=== PATIENT | female | born 1935 | race Caucasian/White ===

== ENCOUNTER 2016-10-30 13:13 | Emergency (ER) | payer MEDICARE ==
[~2016-10-30] VITALS: Ht 162.6 cm; Wt 60.0 kg
[2016-10-30 13:25] VITALS: BP 152/84
--- NOTE | 2016-10-30 14:41 | RAD ---
Right knee radiograph 10/30/2016 at 1331 hours Indication: Fall today Comparison: None available Technique: 3 views of the right knee are provided. Findings: There is a transversely oriented fracture involving the lower pole of the patella which is mildly distracted. There is a small knee joint effusion. Infrapatellar fat pad is clear. No acute fracture involving the femur, tibia or fibula. Impression: Transversely oriented fracture involving the patella with minimal distraction. Small knee joint effusion.
--- NOTE | 2016-10-30 14:51 | PHYS DOC ---
General Chief Complaint: KNEE INJURY Stated Complaint: [facility] F[facility]. RT KNEE PAIN Time Seen by MD: 13:18 Source: patient Exam Limitations: no limitations Problems: History of Present Illness Initial Comments Patient is an 80-year-old female brought to the ED for evaluation all. Patient states she was walking in the driveway and hit uneven pavement tripping she fell to her right knee and caught herself with her left upper extremity. She hit her left forehead on the ground but did not black out she's had no neck pain photophobia vomiting or focal neurologic deficit. She does complain of a headache as well as generalized left wrist pain but she moved the left wrist fully. She was unable to bear weight on her right leg complaining of severe knee pain across the knee. She denies numbness tingling weakness or radiating symptoms, she denies any other injuries from the fall. Her only medical problems are history of breast cancer for which she was treated with bilateral mastectomy and she takes tamoxifen. She denies anticoagulation. Onset: just prior to arrival Severity: severe Pain/Injury Location: right knee Method of Injury: fell Modifying Factors: worse with jarring, worse with movement, improves with pain medication, improves with rest Allergies: Coded Allergies: Penicillins (Verified Allergy, Unknown, 10/30/16) Past Medical History Medical History: cancer (rest) Surgical History: noncontributory (mastectomy) Social History Smoker: non-smoker Alcohol: occasionally Drugs: none Review of Systems Constitutional: denies chills, denies fever EENTM: denies eye pain, denies ear pain, denies ear discharge, denies nose congestion, denies throat pain Respiratory: denies cough, denies shortness of breath Cardiovascular: denies chest pain, denies palpitations, denies syncope Gastrointestinal: denies abdominal pain, denies nausea, denies vomiting Musculoskeletal: see HPI Psychiatric/Neurological: see HPI Physical Exam General Appearance: WD/WN, moderate distress HEENT: PERRL/EOMI, normal ENT inspection, TMs normal, pharynx normal, other ( there is a small abrasion of the left fourth and otherwise normocephalic atraumatic raccoon eyes no bony scalp deformity or areas of swelling or tenderness at the face or scalp.) Neck: non-tender, supple Cardiovascular/Respiratory: normal peripheral pulses, normal breath sounds Back: no CVA tenderness, no vertebral tenderness Knees: right knee other (exquisite tenderness and swelling of the right patella range of motion and ligamentous integrity not tested due to probable fracture) Neurologic/Tendon: normal sensation, normal motor functions, normal tendon functions, responds to pain, no evidence tendon injury, other (left wrist has generalized tenderness no bony tenderness for range of motion) Psychiatric: alert, oriented x 3 Skin: normal color, warm/dry Orders, Labs, Meds PATIENT: VICKI MONAHAN ACCOUNT: [id number] : 1935 LOCATION: ER AGE: 80 SEX: F EXAM STATUS: PRE ER ORD. PHYSICIAN: BRYCE PAYAN DO REASON: FALL PROCEDURE: KNEE RIGHT 3V Right knee radiograph 10/30/2016 at 1331 hours Indication: Fall today Comparison: None available Technique: 3 views of the right knee are provided. Findings: There is a transversely oriented fracture involving the lower pole of the patella which is mildly distracted. There is a small knee joint effusion. Infrapatellar fat pad is clear. No acute fracture involving the femur, tibia or fibula. Impression: Transversely oriented fracture involving the patella with minimal distraction. Small knee joint effusion. DICTATED AND SIGNED BY: FELIPE BARRIGA MD DATE: 10/30/161436 CC: BRYCE PAYAN DO ~ I discussed the patient with Dr. Taylor who reviewed the patient's knee and wrist films while we spoke. Interpreted wrist as negative, there is a patellar fracture of right knee. He recommends right knee immobilizer and crutches, patient can bear some weight. He gave his contact information for this patient to call Tuesday morning to schedule an appointment. I discussed this with the patient was relieved she was going to get to go home. Her questions were answered she expressed agreement and understanding with the treatment plan see departure instructions. technical services consultant is going to arrange home health. Departure Time of Disposition: 16:35 Disposition: 01 HOME, SELF-CARE Diagnosis: Fall, Right patella fracture, concussion, left wri Condition: STABLE Patient Instructions: Concussion and Brain Injury, [id number], Patellar Fracture, Adult, RICE - Routine Care for Injuries, [id number] Additional Instructions: Wear right knee immobilizer except when bathing. Use crutches for ambulation, do not bear weight fully on her right leg. RICE, see handout. Avoid aspirin and ibuprofen for at least 48 hours due to your head injury. Prescription: Piggott 5 mg #20, take with food to avoid nausea. [id number] stool softeners and increase fluids to avoid constipation. You will need to follow up with an orthopedic surgeon. Contact Dr. Taylor's office Tuesday morning upon opening [phone] to schedule next available office visit. Return to ED with new or changing symptoms. BRYCE PAYAN DO Oct 30, 2016 14:51
[2016-10-30] MEDS ORDERED: HYDR-971 PO (16:42)
[2016-10-30] MEDS ORDERED: ONDANSETRON ODT 4 MG TAB.RAPDIS PO ONE (16:50)
[2016-10-30] MEDS ORDERED: HYDROcodone/APAP 5/325MG 1 TAB TABLET PO ONE (16:50)
--- NOTE | 2016-10-31 08:51 | RAD ---
Exam: Left hand and left wrist radiograph 10/30/2016 at 1443 hours Indication: Left wrist pain, fall Comparison: None available Technique: 3 views of the left wrist and 3 views the left hand are provided. Findings: Left wrist: There is no acute fracture or dislocation. There is joint space narrowing involving the radiocarpal articulation with subcortical sclerosis along the distal radius. There is joint space narrowing with endplate sclerosis and osteophytosis at the first metacarpal joint. Left hand: Mild joint space narrowing involving the interphalangeal joints. There is no acute fracture or dislocation. No significant soft tissue swelling. No osseous erosion or subcutaneous gas. Impression: 1. No acute fracture or dislocation involving the left wrist and left hand. 2. 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
== END 2016-10-30 18:12 | disposition home or self-care (01) ==
LOC: ER 13:13
DX: S06.0X0A Concussion without loss of consciousness, initial encounter (principal); S82.091A Other fracture of right patella, initial encounter for closed fracture; M25.532 Pain in left wrist; Z88.0 Allergy status to penicillin; Z90.13 Acquired absence of bilateral breasts and nipples; W01.198A Fall on same level from slipping, tripping and stumbling with subsequent striking against other object, initial encounter; Y93.01 Activity, walking, marching and hiking; Y99.8 Other external cause status; Y92.89 Other specified places as the place of occurrence of the external cause
CPT/HCPCS: 29505; 73110; 73130; 73562; 99284; Q0162

== ENCOUNTER 2019-06-30 05:47 | Emergency (ER) | payer MEDICARE, OTHER ==
[~2019-06-30] VITALS: Ht 157.5 cm; Wt 52.9 kg
[~2019-06-30 05:47] MED LIST: HYDR-3165 PO
[2019-06-30] MEDS ORDERED: IV NORMAL SALINE 1,000ML 1,000 ML IV ONE (06:15)
--- NOTE | 2019-06-30 06:43 | PHYS DOC ---
Past History Past Medical History: Cancer Past Surgical History: Cancer Surgery Alcohol Use: Occasionally Drug Use: None General Adult EDM: Chief Complaint: MECHANICAL FALL HPI: HPI: Patient is an 83-year-old hospice patient who lives at home who presents after she tripped and fell up against the shower and opened a small laceration in her right temporal region. Apparently, there was no loss of consciousness. Patient denies any other symptoms at this time. She denied any chest pain shortness of breath dyspnea on exertion. She denies any palpitations. She denies any lateralizing neurologic weakness. [] Review of Systems: Review of Systems: Constitutional: Denies fever or chills Eyes: Denies change in visual acuity HENT: Denies nasal congestion or sore throat Respiratory: Denies cough or shortness of breath Cardiovascular: Denies chest pain or edema GI: Denies abdominal pain, nausea, vomiting, bloody stools or diarrhea : Denies dysuria Musculoskeletal: Denies back pain or joint pain Integument: Per HPI Neurologic: Denies headache, focal weakness or sensory changes Endocrine: Denies polyuria or polydipsia Lymphatic: Denies swollen glands Psychiatric: Reports anxiety Heart Score: Risk Factors: Risk Factors: DM, Current or recent (<one month) smoker, HTN, HLP, family history of CAD, obesity. Risk Scores: Score 0 - 3: 2.5% MACE over next 6 weeks - Discharge Home Score 4 - 6: 20.3% MACE over next 6 weeks - Admit for Clinical Observation Score 7 - 10: 72.7% MACE over next 6 weeks - Early Invasive Strategies Current Medications: Current Meds: Current Medications Medications (Trade) Dose Ordered Sig/Cristina Start Time Stop Time Status Last Admin Dose Admin Sodium Chloride 1,000 ml @ 1,000 mls/hr 1X ONCE 06/30/19 06:15 06/30/19 07:14 Allergies: Allergies: Allergies Coded Allergies Type Severity Reaction Last Updated Verified Penicillins Allergy Unknown 10/30/16 Yes Physical Exam: PE: Constitutional: Frail, elderly female who appears chronically ill [] HENT: Normocephalic, atraumatic, bilateral external ears normal, oropharynx moist, no oral exudates, nose normal. [] Eyes: PERRLA, EOMI, conjunctiva normal, no discharge. [] Neck: Normal range of motion, no tenderness, supple, no stridor. [] Cardiovascular:Heart rate regular rhythm, no murmur [] Lungs & Thorax: Bilateral breath sounds clear to auscultation [] Abdomen: Bowel sounds normal, soft, no tenderness, no masses, no pulsatile masses. [] Skin: 1.5 cm laceration in the right temporoparietal area bleeding controlled no obvious foreign body. [] Back: No tenderness, no CVA tenderness. [] Extremities: Some upper extremity lymphedema [] Neurologic: Alert and oriented X 3, normal motor function, normal sensory function, no focal deficits noted. [] Psychologic: Anxious. [] EKG: EKG: [] Radiology/Procedures: Radiology/Procedures: [] Course & Med Decision Making: Course & Med Decision Making Pertinent Labs and Imaging studies reviewed. (See chart for details) [Procedure: Laceration repair The wound was scrubbed with Hibiclens inspected for foreign body none was found then using a skin stapler 1 staple was placed which reapproximated the wound nicely.] Dragon Disclaimer: Dragon Disclaimer: This electronic medical record was generated, in whole or in part, using a voice recognition dictation system. Departure Departure: Impression: Primary Impression: Scalp laceration Qualified Codes: S01.01XA - Laceration without foreign body of scalp, initial encounter Disposition: 01 HOME/RESIDENCE PRIOR TO ADM Condition: IMPROVED Referrals: PCP,UNKNOWN (PCP) Patient Instructions: Laceration Care, Adult Additional Instructions: Have the staple removed in 7 to 10 days. Return to the emergency department with any new or concerning symptoms NILE SCHMID DO June 30, 2019 06:43
[2019-06-30 07:30] VITALS: BP 131/71
== END 2019-06-30 07:30 | disposition home or self-care (01) ==
LOC: ER 05:47
DX: S01.01XA Laceration without foreign body of scalp, initial encounter (principal); Z88.0 Allergy status to penicillin; W18.2XXA Fall in (into) shower or empty bathtub, initial encounter; Y93.89 Activity, other specified; Y92.89 Other specified places as the place of occurrence of the external cause; Y99.8 Other external cause status
CPT/HCPCS: 12001; 99284